=== PATIENT | female | born 2000 | race African-American/Black ===

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

== ENCOUNTER 2020-01-04 14:09 | Emergency (ER) | payer MEDICAID, OTHER, SELFPAY ==
[~2020-01-04] VITALS: Ht 170.2 cm; Wt 115.4 kg
[2020-01-04] MEDS ORDERED: PENI500T PO (15:08)
[2020-01-04 15:47] VITALS: BP 144/80
== END 2020-01-04 15:57 | disposition home or self-care (01) ==
LOC: M ED 14:09
DX: J02.0 Streptococcal pharyngitis (principal); J06.9 Acute upper respiratory infection, unspecified; B34.9 Viral infection, unspecified; F41.9 Anxiety disorder, unspecified

== ENCOUNTER 2020-06-05 02:08 | Emergency (ER) | payer OTHER, SELFPAY ==
[~2020-06-05] VITALS: Ht 170.2 cm; Wt 123.2 kg
[~2020-06-05 02:08] MED LIST changes: +PENI500T PO
[2020-06-05] MEDS ORDERED: NS 1,000 ML IV ONE (05:30)
[2020-06-05 05:56] LABS: BASO # 0.1 10^3/uL (0.0-0.2); BASO % 0.6 % (0.0-1.0); EOS # 0.2 10^3/uL (0.0-0.5); EOS % 2.5 % (0.0-3.0); HEMATOCRIT 34.3 % (36.0-47.0); HEMOGLOBIN 10.4 g/dl (12.0-15.5); LYMPH # 2.5 10^3/uL (1.5-5.0); LYMPH % 28.9 % (24.0-44.0); MEAN CORPUSCULAR HEMOGLOBIN 24.1 pg (27.0-33.0); MEAN CORPUSCULAR HGB CONC 30.3 g/dl (32.0-36.5); MEAN CORPUSCULAR VOLUME 79.4 fl (80.0-96.0); MONO # 0.8 10^3/uL (0.0-0.8); MONO % 9.6 % (2.0-8.0); PLATELET COUNT, AUTOMATED 383 10^3/uL (150-450); RED BLOOD COUNT 4.32 10^6/uL (4.00-5.40); WHITE BLOOD COUNT 8.6 10^3/uL (4.0-10.0)
[2020-06-05 06:05] LABS: INR 1.08; PROTHROMBIN TIME 14.2 SECONDS (12.5-14.3)
[2020-06-05 06:06] LABS: PARTIAL THROMBOPLASTIN TIME 30.7 SECONDS (24.2-38.5)
[2020-06-05 06:21] LABS: HEMOGLOBIN A1c 5.7 %
[2020-06-05 06:25] LABS: HCG, SERUM QUALITATIVE NEGATIVE (NEGATIVE)
[2020-06-05 06:31] LABS: ALBUMIN 3.5 GM/DL (3.2-5.2); ALT/SGPT 17 U/L (12-78); BILIRUBIN,DIRECT < 0.1 MG/DL (0.0-0.2); BILIRUBIN,TOTAL 0.1 MG/DL (0.2-1.0); BLOOD UREA NITROGEN 10 MG/DL (7-18); CALCIUM LEVEL 8.5 MG/DL (8.5-10.1); CARBON DIOXIDE LEVEL 26 MEQ/L (21-32); CHLORIDE LEVEL 107 MEQ/L (98-107); CREATININE FOR GFR 0.79 MG/DL (0.55-1.30); FREE T4 1.01 NG/DL (0.78-1.33); GLUCOSE, FASTING 96 MG/DL (70-100); POTASSIUM SERUM 4.1 MEQ/L (3.5-5.1); SODIUM LEVEL 140 MEQ/L (136-145); TOTAL PROTEIN 7.9 GM/DL (6.4-8.2)
--- NOTE | 2020-06-05 07:10 | REPVR ---
PROCEDURE INFORMATION: Exam: XR Chest Exam date and time: 06/05/2020 6:54 AM Age: 20 years old Clinical indication: Chest pain TECHNIQUE: Imaging protocol: XR of the chest Views: 2 views. COMPARISON: CR Chest, 2 view PA, Lat 02/16/2019 1:48 AM FINDINGS: Lungs: Unremarkable. No consolidation. Pleural spaces: Unremarkable. No pleural effusion. No pneumothorax. Heart/Mediastinum: Unremarkable. No cardiomegaly. Bones/joints: Unremarkable. IMPRESSION: No evidence for acute pulmonary disease. Electronically signed by: Flaco Mcnamara On 06/05/2020 07:10:34 AM
[2020-06-05] MEDS ORDERED: FERR240T PO (08:05)
[2020-06-05 08:10] VITALS: BP 112/55
--- NOTE | 2020-06-05 19:23 | ECGEPIP ---
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
== END 2020-06-05 08:36 | disposition home or self-care (01) ==
LOC: M ED 02:08
DX: E86.0 Dehydration (principal); D64.9 Anemia, unspecified

== ENCOUNTER 2021-07-05 17:48 | Emergency (ER) | payer OTHER, SELFPAY ==
[~2021-07-05] VITALS: Ht 167.6 cm; Wt 108.2 kg
[~2021-07-05 17:48] MED LIST changes: +FERR240T PO
[2021-07-05 21:06] VITALS: BP 128/73
== END 2021-07-05 21:15 | disposition home or self-care (01) ==
LOC: M ED 17:48
DX: S89.92XA Unspecified injury of left lower leg, initial encounter (principal); M25.562 Pain in left knee; W19.XXXA Unspecified fall, initial encounter; Y92.099 Unspecified place in other non-institutional residence as the place of occurrence of the external cause; Y93.9 Activity, unspecified; Y99.9 Unspecified external cause status; Z79.899 Other long term (current) drug therapy

== ENCOUNTER → 2022-06-19 | Outpatient (REF) | payer OTHER ==
[2022-06-19 12:55] LABS: ALBUMIN 3.7 G/DL (3.2-5.2); ALKALINE PHOSPHATASE 85 U/L (46-116); ALT/SGPT 13 U/L (7.0-40); AST/SGOT 14 U/L (<34); BILIRUBIN,TOTAL 0.5 MG/DL (0.3-1.2); BLOOD UREA NITROGEN 9 MG/DL (9-23); CALCIUM LEVEL 9.3 MG/DL (8.5-10.1); CARBON DIOXIDE LEVEL 25 MMOL/L (20-31); CHLORIDE LEVEL 105 MMOL/L (98-107); CHOLESTEROL LEVEL 143 MG/DL (<200); CHOLESTEROL RISK RATIO 2.43 (<5); CREATININE FOR GFR 0.73 MG/DL (0.55-1.30); GLOMERULAR FILTRATION RATE > 60.0 (>60); GLUCOSE, FASTING 87 MG/DL (60-100); HDL CHOLESTEROL 58.7 MG/DL (>40); LDL CHOLESTEROL 77.5 MG/DL (<100); NON-HDL-C 84.3 MG/DL; POTASSIUM SERUM 4.4 MMOL/L (3.5-5.1); SODIUM LEVEL 137 MMOL/L (136-145); THYROID STIMULATING HORMONE 2.824 uIU/ML (0.55-4.78); TOTAL 25(OH) VITAMIN D 19.9 NG/ML (20.0-100.0); TOTAL PROTEIN 7.5 G/DL (5.7-8.2); TRIGLYCERIDES LEVEL 34 MG/DL (<150)
[2022-06-19 12:56] LABS: BASO # 0.1 10^3/uL (0.0-0.2); BASO % 0.9 % (0.0-1.0); EOS # 0.1 10^3/uL (0.0-0.5); EOS % 1.1 % (0.0-3.0); HEMATOCRIT 35.3 % (36.0-47.0); LYMPH # 1.3 10^3/uL (1.5-5.0); LYMPH % 23.7 % (24.0-44.0); MEAN CORPUSCULAR HEMOGLOBIN 24.4 pg (27.0-33.0); MEAN CORPUSCULAR HGB CONC 31.2 g/dl (32.0-36.5); MEAN CORPUSCULAR VOLUME 78.4 fl (80.0-96.0); MONO # 0.5 10^3/uL (0.0-0.8); MONO % 9.6 % (2.0-8.0); NEUTROPHILS # 3.5 10^3/uL (1.5-8.5); NEUTROPHILS % 64.5 % (36.0-66.0); PLATELET COUNT, AUTOMATED 383 10^3/uL (150-450); WHITE BLOOD COUNT 5.4 10^3/uL (4.0-10.0)
[2022-06-19 13:32] LABS: HEMOGLOBIN A1c 5.5 % (4.0-6.0)
== END ==
LOC: M LAB REF 12:09
PROVIDERS: ATTEND Nurse Practitioner Family
DX: Z13.228 Encounter for screening for other metabolic disorders (principal)